=== PATIENT | female | born 1995 | race African-American/Black ===

== ENCOUNTER 2017-03-19 18:34 | Emergency (ER) | payer MEDICAID ==
[~2017-03-19] VITALS: Ht 160 cm; Wt 45.7 kg
[~2017-03-19 18:34] MED LIST: ABAC1TAB14 PO
[2017-03-19 18:37] VITALS: BP 111/72
== END 2017-03-19 19:28 | disposition home or self-care (01) ==
LOC: ED 19:20
DX: K02.9 Dental caries, unspecified (principal); K08.89 Other specified disorders of teeth and supporting structures
CPT/HCPCS: 99283